=== PATIENT | male | born 1940 | race Caucasian/White ===

== ENCOUNTER 2017-04-01 13:46 | Emergency (ER) | payer MEDICARE ==
[2017-04-01 14:09] VITALS: TEMP 98.2
--- NOTE | 2017-04-01 14:30 | ED ---
General Adult HPI - General Chief complaint: Extremity Injury, Upper Stated complaint: [facility] Sent/Finger Pain Time Seen by Provider: 04/01/17 14:11 Source: patient, RN notes reviewed Mode of arrival: ambulatory Limitations: no limitations - History of Present Illness Initial comments: 76-year-old male presents emergency 5 chief complaint of right middle finger fracture. Patient states that he fell today and hurt his right finger he went to [facility] and was sent here. Patient because of pain right finger. Patient states there is no other injuries from the fall. Patient denies any other symptoms at this time.Patient denies any recent fever, chills, shortness of breath, chest pain, back pain, abdominal pain, nausea vomiting, numbness or tingling, dysuria or hematuria, constipation or diarrhea, headaches or visual changes, or any other current symptoms. - Related Data Allergies Allergy/AdvReac Type Severity Reaction Status Date / Time No Known Allergies Allergy Verified 04/01/17 14:07 Review of Systems ROS Statement: Those systems with pertinent positive or pertinent negative responses have been documented in the HPI. ROS Other: All systems not noted in ROS Statement are negative. Past Medical History Past Medical History: Heart Failure, Hyperlipidemia, Hypertension History of Any Multi-Drug Resistant Organisms: None Reported Past Surgical History: Hernia Repair, Joint Replacement Past Psychological History: No Psychological Hx Reported Smoking Status: Never smoker Past Alcohol Use History: Occasional Past Drug Use History: None Reported General Exam - General Exam Comments Initial Comments: General: The patient is awake and alert, in no distress, and does not appear acutely ill. Neck: The neck is supple, there is no tenderness. Cardiovascular: There is a regular rate and rhythm. No murmur, rub or gallop is appreciated. Respiratory: Lungs are clear to auscultation, respirations are non-labored, breath sounds are equal. No wheezes, stridor, rales, or rhonchi. Musculoskeletal: Sensation intact with 2+ pulses. Right lower extremity. Full range of motion of right wrist and right hand. Patient does appear to have a deformity to the right middle finger with associated bruising at the lower aspect. Patient also has some bruising to the ring finger as well. Neurological: CN II-XII intact, There are no obvious motor or sensory deficits. Coordination appears grossly intact. Speech is normal. Skin: Skin is warm and dry and no rashes or lesions are noted. Psychiatric: Normal mood and affect. Limitations: no limitations Course Vital Signs 04/01/17 14:07 Temperature 98.2 F Pulse Rate 75 Respiratory 18 Rate Blood Pressure 120/71 O2 Sat by Pulse 98 Oximetry Procedures - Orthopedic Fracture Reduction Fracture #1 Consent Obtained: verbal consent Time Out Performed: Yes Side: right Fracture Reduction Location: finger Analgesia: digital block Technique: direct manipulation Post Reduction X-rays Demonstrate: anatomical reduction Post-Reduction Neuro Exam: intact Post-Reduction Vascular Exam: intact Splint Applied: Yes Patient Tolerated Procedure: well Medical Decision Making - Medical Decision Making 76-year-old male presents for right middle finger fracture and dislocation. Outside films were reviewed. This time patient underwent a reduction of the finger. We discussed care follow-up return parameters all patient's family's questions. They state Red management plan. All questions have been answered. They will be discharged home. - Radiology Data Radiology results: report reviewed, image reviewed Disposition Clinical Impression: Fracture of phalanx of right middle finger, Dislocation of right middle finger Disposition: HOME SELF-CARE Condition: Stable Instructions: Finger Dislocation (ED), Finger Fracture (ED) Additional Instructions: Please use medication as discussed. Please follow up with family doctor if symptoms have not improved over the next two days. Please return to the emergency room if your symptoms increase or worsen or for any other concerns. Referrals: Julien Atkinson MD [Primary Care Provider] - 1-2 days Tariq Saunders DO [Doctor of Osteopathic Medicine] - 1-2 days Time of Disposition: 15:03
--- NOTE | 2017-04-01 14:55 | XR ---
Right hand HISTORY: Pain to third digit after fall Correlation to plain film outside institution 04/01/2017. 3 views of the right hand Soft tissue swelling noted at the third digit. Small ossific density is noted just lateral to the dis gissel aspect of the proximal phalanx of the third digit. Interval relocation of the posterior dislocati on at the third digit proximal interphalangeal joint. Small ossific densities also noted dorsally at the proximal interphalangeal joint. Underlying arthropathy is present. There is an old ulnar styloid fracture which is nonfused. Remodeling of distal radius thought likely due to old trauma. Bone minera lization is mildly reduced. No radiopaque foreign body evident. IMPRESSION: Interval reduction of the third digit fracture dislocation. Additional findings above.
[2017-04-01 15:14] VITALS: BP 118/78; PULSE 78; RESP 17
== END 2017-04-01 15:13 | disposition home or self-care (01) ==
LOC: EC 13:46
DX: S62.612A Displaced fracture of proximal phalanx of right middle finger, initial encounter for closed fracture (principal); S63.252A Unspecified dislocation of right middle finger, initial encounter; W19.XXXA Unspecified fall, initial encounter
CPT/HCPCS: 26725; 99283

== ENCOUNTER → 2018-10-30 | Outpatient (CLI) | payer MEDICARE ==
[2018-10-30 11:17] LABS: Protein, Total 5.9 g/dL (6.2-8.2)
[2018-10-30 11:32] LABS: C Reactive Protein <0.4 mg/dL (0.0-0.8); Creatine Kinase 93 U/L (35-257); Hemoglobin A1C 6.1 % (4.0-6.0)
[2018-10-30 13:25] LABS: Albumin 3.62 g/dL (3.80-4.90); Gamma Globulin 0.64 g/dL (0.70-1.50)
[2018-10-31 12:48] LABS: Lyme IgG/IgM 0.02 Index
== END ==
LOC: LABWHC1 06:59
PROVIDERS: ATTEND Psychiatry & Neurology Neurology
DX: G62.9 Polyneuropathy, unspecified (principal); R26.0 Ataxic gait
CPT/HCPCS: 36415; 82550; 82607; 82747; 83036; 84165; 84207; 84439; 84443; 85652; 86038; 86140; 86618

== ENCOUNTER → 2018-10-30 | Outpatient (CLI) | payer MEDICARE ==
--- NOTE | 2018-10-30 12:58 | MR ---
EXAMINATION TYPE: MR brain wo con DATE OF EXAM: 10/30/2018 COMPARISON: NONE HISTORY: Ataxia / Spinal stenosis/ difficult walking TECHNIQUE: Multiplanar, multisequence images of the brain and brainstem is performed without IV contrast. FINDINGS: Diffusion weighted images demonstrate no evidence of a recent infarct or other diffusion ab normality. There is no extra-axial fluid collection. Few scattered foci of T2/FLAIR hyperintensity a re seen within the periventricular and subcortical white matter, these are most commonly on the basis of chronic microangiopathy and overall mild burden for the patient's age. Small area of gliosis is a lso seen within the left midbrain. The ventricular system and cisternal spaces are symmetrically prom inent. The brain volume is age appropriate. Midline structures demonstrate normal morphology. The craniocervical junction appears within normal limits. Post contrast images demonstrate no abnormal enhancement. The dural venous sinuses appear pa tent. Mild mucosal thickening is seen of the ethmoid sinuses. The remaining visualized sinuses are cl ear and the globes are intact. IMPRESSION: 1. Ventricular prominence is symmetric to the peripheral sulcal prominence compatible with mild degre e age-related volume loss. No findings to suspect normal pressure hydrocephalus in this patient descr ibing ataxia and difficulty walking. No acute infarct, midline shift or mass effect. 2. Mild burden nonspecific white matter change, likely on the basis of chronic microangiopathy.
== END | disposition home or self-care (01) ==
LOC: RADMRIMAIN 06:09
PROVIDERS: ATTEND Psychiatry & Neurology Neurology
DX: R90.89 Other abnormal findings on diagnostic imaging of central nervous system (principal); R27.0 Ataxia, unspecified
CPT/HCPCS: 70551

== ENCOUNTER → 2018-11-13 | Outpatient (CLI) | payer MEDICARE ==
--- NOTE | 2018-11-13 08:19 | MR ---
MRI CERVICAL SPINE: CLINICAL HISTORY: Cervical spine stenosis with myelopathy, hyperreflexia, imbalance, and leg weakness per order. Difficulty walking for one year per patient. TECHNIQUE: Multiplanar, multisequence imaging of the cervical spine is performed without IV contrast. COMPARISON: None. FINDINGS: Sagittal images of the cervical spine show the craniocervical junction to appear within nor mal limits. The cervical and upper thoracic spinal cord is normal in course, caliber, and signal. Th ere is slight grade 1 retrolisthesis of C3 on C4 and 2 slightly degraded degree C4 on C5. The verteb ral body heights are normal. Moderate to severe disc space narrowing C3-C4 level is seen with moderat e anterior spurring and heterogeneous endplate changes. There is mild to moderate disc space narrowin g C4-C5 level. There is moderate disc space narrowing and anterior spurring C6-C7 level. Multilevel p osterior disc herniations are seen on sagittal images including involvement at T2-T3 level. Axial images show the C2-C3 level to appear within normal limits. Axial images at C3-C4 level show uncovertebral facet degenerative changes bilaterally along with spon dylolisthesis and broad-based right paracentral disc protrusion. There is effacement of the anterior thecal sac and moderate left greater than right bilateral neural foraminal narrowing. Axial images at C4-C5 level show spondylolisthesis with broad-based disc protrusion and uncovertebral facet spurring, there is effacement of the anterior thecal sac and moderate to advanced right greate r than left bilateral neural foraminal narrowing. Axial images at C5-C6 level show broad-based left paracentral disc protrusion effacing anterolateral thecal sac with mild left greater than right bilateral neural foraminal narrowing. Axial images at C6-C7 level show focal left paracentral disc protrusion effacing anterolateral thecal sac and causing mild to moderate bilateral neural foraminal narrowing. Axial images at C7-T1 level are felt within normal limits. IMPRESSION: Multilevel degenerative changes in the cervical spine most prominent at C3-C4, C4-C5, C6- C7 levels as detailed above.
== END ==
LOC: RADMRIMAIN 07:37
PROVIDERS: ATTEND Psychiatry & Neurology Neurology
DX: M48.02 Spinal stenosis, cervical region (principal); M99.71 Connective tissue and disc stenosis of intervertebral foramina of cervical region; M43.12 Spondylolisthesis, cervical region; M50.01 Cervical disc disorder with myelopathy, high cervical region; M47.12 Other spondylosis with myelopathy, cervical region
CPT/HCPCS: 72141

== ENCOUNTER → 2018-12-09 | Outpatient (CLI) | payer MEDICARE ==
--- NOTE | 2018-12-09 08:37 | MR ---
EXAMINATION TYPE: MR thoracic spine wo con , DATE OF EXAM ORDERED: 12/09/2018 HISTORY: R26.0 - Ataxic gait / Thoracic myelopathy. COMPARISON: None. FINDINGS: There is minimal wedging of the T7 and T8 vertebral bodies. This appears chronic. Vertebra l body height and alignment otherwise maintained. There is degenerative disc disease in the lower cer vical spine. There is a broad-based disc displacement at C6-7 slightly eccentric towards the left.. There is bilat eral intervertebral foraminal narrowing at C6-7. There is a left paracentral disc protrusion at T8-9 mildly deforming the thecal sac without cord cont act. There is no other significant compressive discopathy. There is facet arthropathy present at T12- L1. Paraspinal soft tissues are normal. IMPRESSION: 1. MILD WEDGING OF THE T7 AND T8 VERTEBRAL BODIES WHICH APPEARS CHRONIC. 2. LEFT PARACENTRAL DISC PROTRUSION, C6-7 ASSOCIATED WITH A BROAD-BASED DISC DISPLACEMENT. 3. BILATERAL INTERVERTEBRAL FORAMINAL NARROWING, C6-7, SLIGHTLY GREATER ON THE RIGHT THAN THE LEFT. 4. LEFT PARACENTRAL DISC PROTRUSION, T8-9 DEFORMING THE THECAL SAC WITHOUT CORD CONTACT. 5. FACET ARTHROPATHY, T12-L1.
== END | disposition home or self-care (01) ==
LOC: RADMRIMAIN 07:37
PROVIDERS: ATTEND Psychiatry & Neurology Neurology
DX: M48.54XA Collapsed vertebra, not elsewhere classified, thoracic region, initial encounter for fracture (principal); M48.02 Spinal stenosis, cervical region; M50.223 Other cervical disc displacement at C6-C7 level; M51.24 Other intervertebral disc displacement, thoracic region; M46.94 Unspecified inflammatory spondylopathy, thoracic region; R26.0 Ataxic gait; Z91.81 History of falling
CPT/HCPCS: 72146

== ENCOUNTER → 2019-05-23 | Outpatient (CLI) | payer MEDICARE ==
--- NOTE | 2019-05-23 07:45 | US ---
EXAMINATION TYPE: US kidneys/renal and bladder DATE OF EXAM: 05/23/2019 COMPARISON: NONE CLINICAL HISTORY: R31.9 Hematuria. Gross hematuria, no pain EXAM MEASUREMENTS: Right Kidney: 10.0 x 5.3 x 5.2 cm Left Kidney: 9.7 x 3.9 x 4.7 cm Right Kidney: lateral inferior pole cystic appearing lesion= 2.1 x 1.9 x 1.8 cm Left Kidney: No hydronephrosis or masses seen Bladder: mildly distended, anechoic Right jet seen Enlarged and heterogenous prostate visualized = 6.5 x 5.4 x 5.2 cm There is no evidence for hydronephrosis at this point in time. No nephrolithiasis is seen. The urina ry bladder is anechoic. Bilateral ureteral jets are not seen. IMPRESSION: 1. Cystic appearing right renal lesion measuring 2.1 cm. This could be confirmed with CT in this chris ent with hematuria. 2. Enlarged and heterogenous prostate gland.
== END | disposition home or self-care (01) ==
LOC: RADUSWWP 06:49
PROVIDERS: ATTEND Urology
DX: N40.0 Benign prostatic hyperplasia without lower urinary tract symptoms (principal); N28.1 Cyst of kidney, acquired
CPT/HCPCS: 76770

== ENCOUNTER → 2019-06-28 | Outpatient (CLI) | payer MEDICARE ==
--- NOTE | 2019-06-28 10:27 | CT ---
EXAMINATION TYPE: CT urogram wo/w con DATE OF EXAM: 06/28/2019 COMPARISON: Renal ultrasound May 23, 2019 HISTORY: Hematuria CT DLP: 2705 mGycm, Automated Exposure Control for Dose Reduction was Utilized. CONTRAST: CT scan of the abdomen and pelvis is performed without oral and without and with IV Contrast, patient injected with 100 ml mL of Isovue 300. Urogram protocol with 3-D reconstruction images created on an independent workstation and reviewed FINDINGS: KUB: Noncontrast images show punctate 2 mm calculus mid pole level left kidney coronal image 124 with additional 1 to 2 mm suspected calculus just superior to this coronal image 121 midpole level. No ri ght-sided nephrolithiasis. Postcontrast images show symmetric cortical medullary uptake and excretion from both kidneys without hydronephrosis seen bilaterally. There are 2 tiny subcentimeter hypodense lesions lower pole left kidney seen best image 108 series 10 too small to further characterize presum ed benign. Correlating with ultrasound there is simple appearing thin-walled 1.8 cm cyst posterolater al aspect lower pole right kidney series 9 image 44. No concerning solid or cystic renal mass identif ied bilaterally. Visualized portion of the ureters show no suspicious abnormality. Suboptimal evaluat ion of bladder due to artifact from left hip arthroplasty without obvious suspicious intraluminal mas s. There is mild concentric wall thickening noted. LUNG BASES: Some peripheral reticulation or fibrotic changes present bilaterally. Coronary artery chris cification is seen which is noted marked for underlying coronary artery disease. LIVER/GB: Liver is low dense relative to spleen on noncontrast images consistent with diffuse fatty i nfiltration. PANCREAS: No significant abnormality is seen. SPLEEN: No significant abnormality is seen. ADRENALS: No significant abnormality is seen. BOWEL: No significant abnormality is seen. PROSTATE/SEMINAL VESICLES: Markedly enlarged prostate gland bulging of bladder base consistent with B PH. LYMPH NODES: No greater than 1cm abdominal or pelvic lymph nodes are appreciated. OSSEOUS STRUCTURES: Grade 1 anterolisthesis L4 on L5. Severe disc space narrowing lumbosacral junctio n. Prominent hemangioma L2 vertebral body level right aspect. Facet arthropathy lower lumbar spine. M etallic artifact from left hip arthroplasty causes streak artifact limiting evaluation of pelvic stru ctures. Moderate narrowing right hip joint is seen. Small to moderate-size umbilical hernia containin g fat and tiny mesenteric vessels OTHER: Moderate calcified plaque of aorta extends into iliac branch vessels. Asymmetric moderate to s evere fat replaced atrophy of the inferior left iliopsoas muscle versus the opposite right side. Asym metric small to moderate-sized fat-containing left inguinal hernia. IMPRESSION: There are 2 small nonobstructing calculi in the left kidney. Bladder wall thickening like ly related to outlet obstruction related to BPH. Correlate clinically.
== END | disposition home or self-care (01) ==
LOC: RADCTMAIN 06:01
PROVIDERS: ATTEND Urology
DX: N20.0 Calculus of kidney (principal); R93.41 Abnormal radiologic findings on diagnostic imaging of renal pelvis, ureter, or bladder
CPT/HCPCS: 82565; 84520; 74178; 36415; 74400; Q9967

== ENCOUNTER → 2023-12-09 | Outpatient (CLI) | payer MEDICARE ==
--- NOTE | 2023-12-10 15:17 | MR ---
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 COMPARISON: 08/20/2022, 06/17/2022, TECHNIQUE: Triplane multisequence imaging was performed of the pelvis. IV Contrast: 9 cc Gadavist FINDINGS: Prostate: Enlarged measuring up to 5.2 cm in transverse dimension.. Seminal vesicle's: Unremarkable. Testes: Unremarkable. Bladder: Unremarkable. Bowel: Unremarkable as visualized. Peritoneum: None Lymph nodes: No evidence of adenopathy. Vasculature: Unremarkable. Musculoskeletal: There is some mildly increased inversion recovery signal within the sacrum and area of elevated radiotracer activity which demonstrate sclerosis on CT imaging. The L4 vertebral body whi ch and straight diffuse sclerosis on the right aspect of the vertebrae on prior CT 08/20/2022 is demon strates some low T1 curvilinear signal at the margins of the sclerosis and normal vertebral body. The remainder of the vertebral bodies somewhat higher T1 signal. Curvilinear low T1 signal seen along th e sacrum bilaterally with high inversion recovery signal. Left hip arthroplasty changes with suscepti bility artifact. Severe degeneration changes of the spine with at least moderate spinal canal stenosi s at L3-L4. Grade 1 anterolisthesis of L4 and L5. Abdominal wall/soft tissues: Left fat-containing inguinal hernia. IMPRESSION: 1. Mild bone marrow signal changes in the area of prior known metastatic disease seen on 08/20/2022. No new lesions visualized. Consider surveillance with CT imaging. 2. No lymphadenopathy visualized. 3. Prostatomegaly, correlate with serum PSA. 4. Bilateral sacral curvilinear signal possibly relating to insufficiency fracture. Correlate with h istory of pain.
== END | disposition home or self-care (01) ==
LOC: RADMRIMAIN 18:13
PROVIDERS: ATTEND Radiology Radiation Oncology
DX: C79.51 Secondary malignant neoplasm of bone (principal); C61 Malignant neoplasm of prostate; N40.0 Benign prostatic hyperplasia without lower urinary tract symptoms
CPT/HCPCS: 72197; A9585

== ENCOUNTER → 2024-10-03 | Outpatient (CLI) | payer MEDICARE ==
[2024-10-03 14:46] VITALS: BP 126/58; PULSE 91; RESP 17; TEMP 98.2
--- NOTE | 2024-10-03 15:00 | P.PAINPG ---
PQRS Measure Charge Sheet Comment: HISTORY OF PRESENT ILLNESS: A 84 yr old male w daughter at side presents today w severe and chronic LBP > 1 yr secondary to radiculopathy, spondylosis and facet arthropathy without myelopathy for evaluation. Pt states pain level is provoked at 6 /10 in intensity, constant, localized in the lumbar spine, predominantly axial, achy in character w occasional shooting pain towards the knee and RLE. Pain is provoked by bending, lifting. Pain is alleviated by PT x 6 wks which ended in 2019, physician guided home stretches daily since 2019, heat, medications, topical, repositioning and rest . Inteventional procedures include Medications include Fentanyl 25mcg/hr, Oxocodone IR 5mg, Neurontin, Tyl, Lidoder m. Stopped Cannabis REVIEW OF ORGAN SYSTEMS: CONSTITUTIONAL: No fevers or chills. No recent weight loss. NEUROLOGICAL: + numbness and tingling along the distal extremities. No seizure disorders or headaches. MUSCULOSKELETAL: + pain PSYCHIATRIC: Denies current depression or suicidal thoughts. Physical Examinations : Constitutional : Cooperative , not in acute distress . Neurologic : Cranial nerve II to XII intact. No focal neurological deficits. Psychiatric : alert & oriented x 3. Matching mood & appropriate affect. Judgment & insight intact. Musculoskeletal : Cervical Spine Motor strength in the deltoid and biceps: Normal right side. Normal Left side Motor strength biceps and the wrist extensors: Normal right side . Normal left side Motor strength in the triceps muscle: Normal right side. Normal left side Deep tendon reflexes: Normal at the biceps. Normal at Brachioradialis. Normal at triceps Vertebral body tenderness to deep palpation over Cervical facet loading test: positive bilaterally Spurling test: positive bilaterally Neck distraction test: positive bilaterally Tonia sign: positive bilaterally Lumbar spine Motor strength lower extremities ,thigh and legs 5/5 Right side , 5/5 Left side Deep tendon reflexes : Normal Knee Jerk. Normal Ankle Jerk Vertebral body tenderness over Saunders Test positive Lumbar facet Loading Test: positive Right / positive Left Range of motion of the lumbar spine Flexion 30 degrees, extension 10 degrees Straight Leg Raise test: Left/ Right positive at degrees Sammi test: positive right / positive left. Severe tenderness over the Sacroiliac joint on the Right / Left sides Gaenslen test: positive bilaterally Seated flexion test: positive bilaterally. Sacral spine : Severe tenderness over the Sacroiliac joint: right side / left side Range of motion: Flexion of the lumbar spine <60 degrees Range of motion: Extension of the lumbar spine <20 degrees Gaenslen's Test positive Sammi test: positive right side / left side Thigh Thrust Test Sacral Thrust Test Imaging: MRI non contrast lumbar spine from 03/14/24 reviewed Assessment/ Plan : L3-L4/ L4-L5 spondylosis Recommendation of medication management. Fentanyl 25mcg/hr #10, Oxycodone IR 5mg #60 w 1 RF. Opiate/ narcotic agreement signed 10/03/24. Use, side effects, adverse reactions, safe storage discussed. All questions answered. I have spent greater than 30 minutes on patient care today. Dr Robbins was available by phone for the evaluation of this patient. The time was used to review the medical records including relevant urine studies and Prescription history (MAPs), review of the available imaging, evaluation and examination of the patient, coordination of care with the medical staff and if applicable referring physicians, as well as creation of the medical record - Pain Location Back Pharmacological Interventions: Medication PQRS Narrative: Smoking Status Never smoker Hx Alcohol Use (MH) No Home Medications: Ambulatory Orders fentaNYL 25MCG/HR PATCH [Duragesic 25MCG/HR] 25 mcg TRANSDERM Q72H 30 Days #10 patch 10/03/24 fentaNYL 25MCG/HR PATCH [Duragesic 25MCG/HR] 25 mcg TRANSDERM Q72H 30 Days #10 patch 10/03/24 oxyCODONE HCL [oxyCODONE HCL (IR)] 5 mg PO BID PRN 30 Days #60 cap 10/03/24 Controlled Substance Measures - Controlled Substance Measures Is patient prescribed a controlled substance at discharge?: Yes When asked, does pt state using other controlled substances?: Yes If prescribed controlled substance>3 days was MAPS reviewed?: Yes If Rx opioid, was Start Talking consent form obtained?: Yes Was information provided regarding opioid addiction?: Yes
== END ==
LOC: PNWHC3 14:14
PROVIDERS: ATTEND Specialist
DX: M47.26 Other spondylosis with radiculopathy, lumbar region (principal)
CPT/HCPCS: 99212

== ENCOUNTER → 2024-11-28 | Outpatient (CLI) | payer MEDICARE ==
[2024-11-28 14:20] VITALS: BP 117/65; PULSE 100; RESP 16; TEMP 97.1
--- NOTE | 2024-11-28 16:04 | P.PAINPG ---
Objective - Vital Signs Vital signs: Vital Signs Temp 97.1 F L 11/28/24 14:14 Pulse 100 11/28/24 14:14 Resp 16 11/28/24 14:14 BP 117/65 11/28/24 14:14 Pulse Ox 93 L 11/28/24 14:14 FiO2 Intake & Output 11/27/24 11/28/24 11/28/24 18:59 06:59 18:59 Weight 84.822 kg PQRS Measure Charge Sheet Mode of Arrival: Wheelchair Comment: HISTORY OF PRESENT ILLNESS: A 84 yr old male w metastatic prostate CA w daughter at side presents today w severe and chronic LBP > 1 yr secondary to radiculopathy, spondylosis and facet arthropathy without myelopathy for medication refills. Pt states pain level is provoked at 6 /10 in intensity, constant, localized in the lumbar spine, predominantly axial, achy in character w occasional shooting pain towards the knee and RLE. Pain is provoked by bending, lifting. Pain is alleviated by PT x 6 wks which ended in 2019, physician guided home stretches daily since 2019, heat, medications, topical, use of a wheelchair for ambulatory assistance, repositioning and rest . Inteventional procedures include Medications include Fentanyl 25mcg/hr, Oxocodone IR 5mg, Neurontin, Tyl, Lidoderm. Stopped Cannabis REVIEW OF ORGAN SYSTEMS: CONSTITUTIONAL: No fevers or chills. No recent weight loss. NEUROLOGICAL: + numbness and tingling along the distal extremities. No seizure disorders or headaches. MUSCULOSKELETAL: + pain PSYCHIATRIC: Denies current depression or suicidal thoughts. Physical Examinations : Constitutional : Cooperative , not in acute distress . Neurologic : Cranial nerve II to XII intact. No focal neurological deficits. Psychiatric : alert & oriented x 3. Matching mood & appropriate affect. Judgment & insight intact. Musculoskeletal : Cervical Spine Motor strength in the deltoid and biceps: Normal right side. Normal Left side Motor strength biceps and the wrist extensors: Normal right side . Normal left side Motor strength in the triceps muscle: Normal right side. Normal left side Deep tendon reflexes: Normal at the biceps. Normal at Brachioradialis. Normal at triceps Vertebral body tenderness to deep palpation over Cervical facet loading test: positive bilaterally Spurling test: positive bilaterally Neck distraction test: positive bilaterally Tonia sign: positive bilaterally Lumbar spine Motor strength lower extremities ,thigh and legs 5/5 Right side , 5/5 Left side Deep tendon reflexes : Normal Knee Jerk. Normal Ankle Jerk Vertebral body tenderness over Saunders Test positive Lumbar facet Loading Test: positive Right / positive Left Range of motion of the lumbar spine Flexion 30 degrees, extension 10 degrees Straight Leg Raise test: Left/ Right positive at degrees Sammi test: positive right / positive left. Severe tenderness over the Sacroiliac joint on the Right / Left sides Gaenslen test: positive bilaterally Seated flexion test: positive bilaterally. Sacral spine : Severe tenderness over the Sacroiliac joint: right side / left side Range of motion: Flexion of the lumbar spine <60 degrees Range of motion: Extension of the lumbar spine <20 degrees Gaenslen's Test positive Sammi test: positive right side / left side Thigh Thrust Test Sacral Thrust Test Imaging: MRI non contrast lumbar spine from 03/14/24 reviewed Assessment/ Plan : L3-L4/ L4-L5 spondylosis Recommendation of medication management. Fentanyl 25mcg/hr #10, Oxycodone IR 5mg #60, add Zanaflex 4mg #60 w RF. Opiate/ narcotic agreement signed 10/03/24. Use, side effects, adverse reactions, safe storage discussed. All questions answered. I have spent greater than 30 minutes on patient care today. Dr Robbins was available by phone for the evaluation of this patient. The time was used to review the medical records including relevant urine studies and Prescription history (MAPs), review of the available imaging, evaluation and examination of the patient, coordination of care with the medical staff and if applicable referring physicians, as well as creation of the medical record - Pain Location Bilateral Lower Back Non-Pharmacological Interventions: Heat, Inactivity, Physical Therapy, Position/Reposition Pharmacological Interventions: PRN Medication, Scheduled Medication, Topical Medication PQRS Narrative: Smoking Status Never smoker Blood Pressure 117/65 Pain Intensity [Bilateral 8 Lower Back] Scale Used Numeric (1 - 10) Hx Alcohol Use (MH) No Home Medications: Ambulatory Orders fentaNYL 25MCG/HR PATCH [Duragesic 25MCG/HR] 25 mcg TRANSDERM Q72H 30 Days #10 patch 11/28/24 fentaNYL 25MCG/HR PATCH [Duragesic 25MCG/HR] 25 mcg TRANSDERM Q72H 30 Days #10 patch 11/28/24 oxyCODONE HCL [oxyCODONE HCL (IR)] 5 mg PO BID PRN 30 Days #60 cap 11/28/24 oxyCODONE HCL [oxyCODONE HCL (IR)] 5 mg PO BID PRN 30 Days #60 cap 11/28/24 tiZANidine HCL [Zanaflex] 4 mg PO BID PRN 30 Days #60 cap 11/28/24 Controlled Substance Measures - Controlled Substance Measures Is patient prescribed a controlled substance at discharge?: Yes When asked, does pt state using other controlled substances?: Yes If prescribed controlled substance>3 days was MAPS reviewed?: Yes
== END ==
LOC: PNWHC3 13:41
PROVIDERS: ATTEND Specialist
DX: M47.26 Other spondylosis with radiculopathy, lumbar region (principal)
CPT/HCPCS: 99211